=== PATIENT | female | born 1945 | race Caucasian/White ===

== ENCOUNTER 2021-12-05 18:48 | Emergency (ER) | payer MEDICARE, OTHER ==
[~2021-12-05] VITALS: Ht 165.1 cm; Wt 61.2 kg
[2021-12-05] MEDS ORDERED: MACROBID 100 M100 MG PO (19:35)
[2021-12-05] MEDS ORDERED: CLONIDINE HCL0.1 MG PO (19:36)
--- NOTE | 2021-12-06 15:30 | EKG ---
[facility] [address] [facility] [place] [address] Signed Normal sinus rhythm Cannot rule out Anterior infarct , age undetermined Abnormal ECG No previous ECGs available Confirmed by DERRELL GALO MD ([id number] on 12/06/2021 3:29:54 PM Electronically Signed By: DERRELL GALO MD 12/06/21 1530 PATIENT NAME: ADEBAYO COKER Electrocardiogram DATE OF : 45 PHYSICIAN: DERRELL GALO MD REPORT #: [id number] REPORT IS CONFIDENTIAL AND NOT TO BE RELEASED WITHOUT AUTHORIZATION
== END 2021-12-05 21:09 | disposition home or self-care (01) ==
LOC: ED 18:48
DX: R55 Syncope and collapse (principal); N39.0 Urinary tract infection, site not specified; I10 Essential (primary) hypertension; I48.91 Unspecified atrial fibrillation; Z88.8 Allergy status to other drugs, medicaments and biological substances; Z79.899 Other long term (current) drug therapy
CPT/HCPCS: 36415; 70450; 80053; 81001; 85025; 85060; 85610; 85730; 87088; 93005; 93010; 96360; 99284-25; J7040